=== PATIENT | male | born 1995 | race African-American/Black ===

== ENCOUNTER 2018-01-28 13:06 | Emergency (ER) | payer SELFPAY ==
[~2018-01-28] VITALS: Ht 175.3 cm; Wt 87.5 kg
[2018-01-28 13:18] VITALS: BP 132/68; PULSE 78; RESP 16; TEMP 98.3; O2SAT 100
[2018-01-28] MEDS ORDERED: SODIUM CHLOR 0.9% 1000 ML INJ 1,000 ML IV ONE (13:43)
[2018-01-28] MEDS ORDERED: diphenhydrAMINE HCL 50 MG/ML VIAL IVP ONE (13:45)
[2018-01-28] MEDS ORDERED: PROCHLORPERAZINE INJ 10 MG/2 ML VIAL IVP ONE (13:45)
[2018-01-28] MEDS ORDERED: SODIUM CHLORIDE 0.9% FLUSH 10 ML FLUSH IVF PRN (13:45)
--- NOTE | 2018-01-28 13:50 | PD ---
HPI Chief Complaint: Dizziness Time Seen by Provider: 13:43 Travel History International Travel<30 days: No Contact w/Intl Traveler<30days: No Traveled to known affect area: No History of Present Illness HPI 22-year-old male presents with lightheadedness, vomiting and headache since last night. He denies any diarrhea, cough, fever or other concurrent complaints. He denies any trauma. He denies recurrent history of this. He states he tried Motrin without relief. Duration is one day. He denies specific modifying factors. Quality is pressure. Severity is moderate. PFSH Past Medical History Medical History: Denies Significant Hx Past Surgical History Surgical History: No Previous Surgery Social History Tobacco Use: No Allergies-Medications (Allergen,Severity, Reaction): Coded Allergies: No Known Allergies (Unverified , 05/04/13) Reported Meds & Prescriptions Reported Meds & Active Scripts Active Zofran Odt (Ondansetron Odt) 4 Mg Tab 4 Mg SL Q8HR PRN Review of Systems Except as stated in HPI: all other systems reviewed are Neg Physical Exam Narrative GENERAL: 22-year-old male in no apparent distress SKIN: Focused skin assessment warm/dry. HEAD: Atraumatic. Normocephalic. EYES: Pupils equal and round. No scleral icterus. No injection or drainage. ENT: No nasal bleeding or discharge. Mucous membranes pink and moist. NECK: Trachea midline. No JVD. No meningeal signs CARDIOVASCULAR: Regular rate and rhythm. No murmur appreciated. RESPIRATORY: No accessory muscle use. Clear to auscultation. Breath sounds equal bilaterally. GASTROINTESTINAL: Abdomen soft, non-tender, nondistended. MUSCULOSKELETAL: No obvious deformities. No clubbing. No cyanosis. NEUROLOGICAL: Awake and alert. No obvious cranial nerve deficits. Motor grossly within normal limits. Normal speech. 5 out of 5 in all 4 extremities, equal grasp bilaterally PSYCHIATRIC: Appropriate mood and affect; insight and judgment normal. Data Data Last Documented VS Vital Signs Date Time Temp Pulse Resp B/P (MAP) Pulse Ox O2 Delivery O2 Flow Rate FiO2 01/28/18 14:30 98 Room Air 01/28/18 13:46 18 01/28/18 13:18 98.3 78 132/68 (89) Orders Orders Complete Blood Count With Diff (01/28/18 13:43) Basic Metabolic Panel (Bmp) (01/28/18 13:43) Ct Brain W/O Iv Contrast(Rout) (01/28/18 13:43) Ecg Monitoring (01/28/18 13:43) Iv Access Insert/Monitor (01/28/18 13:43) Oximetry (01/28/18 13:43) Sodium Chloride 0.9% Flush (Ns Flush) (01/28/18 13:45) Prochlorperazine Inj (Compazine Inj) (01/28/18 13:45) Diphenhydramine Inj (Benadryl Inj) (01/28/18 13:45) Sodium Chlor 0.9% 1000 Ml Inj (Ns 1000 M (01/28/18 13:43) Ed Discharge Order (01/28/18 16:30) Labs Laboratory Tests Test 01/28/18 14:30 White Blood Count 5.6 TH/MM3 Red Blood Count 5.97 MIL/MM3 Hemoglobin 15.2 GM/DL Hematocrit 46.4 % Mean Corpuscular Volume 77.8 FL Mean Corpuscular Hemoglobin 25.5 PG Mean Corpuscular Hemoglobin Concent 32.7 % Red Cell Distribution Width 13.3 % Platelet Count 276 TH/MM3 Mean Platelet Volume 9.0 FL Neutrophils (%) (Auto) 78.6 % Lymphocytes (%) (Auto) 14.3 % Monocytes (%) (Auto) 6.6 % Eosinophils (%) (Auto) 0.0 % Basophils (%) (Auto) 0.5 % Neutrophils # (Auto) 4.4 TH/MM3 Lymphocytes # (Auto) 0.8 TH/MM3 Monocytes # (Auto) 0.4 TH/MM3 Eosinophils # (Auto) 0.0 TH/MM3 Basophils # (Auto) 0.0 TH/MM3 CBC Comment DIFF FINAL Differential Comment Blood Urea Nitrogen 13 MG/DL Creatinine 1.27 MG/DL Random Glucose 84 MG/DL Calcium Level 10.0 MG/DL Sodium Level 138 MEQ/L Potassium Level 4.7 MEQ/L Chloride Level 104 MEQ/L Carbon Dioxide Level 24.9 MEQ/L Anion Gap 9 MEQ/L Estimat Glomerular Filtration Rate 84 ML/MIN [facility] Medical Decision Making Medical Screen Exam Complete: Yes Emergency Medical Condition: Yes Medical Record Reviewed: Yes (Past history confirmed) Interpretation(s) CBC & BMP Diagram 01/28/18 14:30 Calcium Level 10.0 Last [address] 01/28/18 1343 Signed Impressions: Service Date/Time: Sunday, January 28, 2018 14:25 - CONCLUSION: Normal examination. Ermias Hood MD Differential Diagnosis Tension, migraine, intracranial Narrative Course Will check blood work, CT brain and dose with medication and reevaluate ED workup no acute, Patient denies any new complaints and states that they are feeling better. Patient happy with care, all questions answered. Patient knows that follow up is incumbent on them and to return to the emergency room immediately if new or worsening symptoms develop. Patient given strict return precautions, vitals reviewed and are normal, agrees to further workup as an outpatient. Diagnosis Primary Impression: Cephalgia Qualified Codes: R51 - Headache Additional Impression: Vomiting Qualified Codes: R11.2 - Nausea with vomiting, unspecified Patient Instructions: General Instructions Additional Instructions: alternate tylenol and motrin, return as needed, follow with primary wednesday Med/Other Pt SpecificInfo: Prescription(s) given Scripts Ondansetron Odt (Zofran Odt) 4 Mg Tab 4 MG SL Q8HR Y for Nausea/Vomiting, #10 TAB 0 Refills Prov: Heather Mccray MD 01/28/18 Disposition: 01 DISCHARGE HOME Condition: Stable Heather Mccray MD Jan 28, 2018 13:50
[2018-01-28 14:30] VITALS: O2SAT 98
--- NOTE | 2018-01-28 14:37 | RADRPT ---
EXAM DATE/TIME: 01/28/2018 14:25 [facility] COMPARISON: No previous studies available for comparison. INDICATIONS : Cephalgia, dizziness. RADIATION DOSE: 38.57 CTDIvol (mGy) MEDICAL HISTORY : None SURGICAL HISTORY : None. ENCOUNTER: Initial ACUITY: 1 day PAIN SCALE: 6/10 LOCATION: cranial TECHNIQUE: Multiple contiguous axial images were obtained of the head. Using automated exposure control and adj ustment of the mA and/or kV according to patient size, radiation dose was kept as low as reasonably a chievable to obtain optimal diagnostic quality images. DICOM format image data is available electro nically for review and comparison. FINDINGS: CEREBRUM: The ventricles are normal for age. No evidence of midline shift, mass lesion, hemorrhage or acute in farction. No extra-axial fluid collections are seen. POSTERIOR FOSSA: The cerebellum and brainstem are intact. The 4th ventricle is midline. The cerebellopontine angle i s unremarkable. EXTRACRANIAL: The visualized portion of the orbits is intact. SKULL: The calvaria is intact. No evidence of skull fracture. CONCLUSION: Normal examination. Ermias Hood MD on January 28, 2018 at 14:34 Board Certified Radiologist. This report was verified electronically.
[2018-01-28 15:23] LABS: AUTOMATED NEUTROPHIL # 4.4 TH/MM3 (1.8-7.7); BASOPHIL % 0.5 % (0.0-2.0); HEMATOCRIT 46.4 % (39.0-51.0); HEMOGLOBIN 15.2 GM/DL (13.0-17.0); LYMPH % 14.3 % (9.0-44.0); LYMPHOCYTE # 0.8 TH/MM3 (1.0-4.8); MEAN CELL VOLUME 77.8 FL (80.0-100.0); MEAN CORPUSCULAR HEMOGLOBIN 25.5 PG (27.0-34.0); MEAN CORPUSCULAR HGB CONC 32.7 % (32.0-36.0); MONO % 6.6 % (0.0-8.0); MONOCYTE # 0.4 TH/MM3 (0-0.9); NEUT % 78.6 % (16.0-70.0); PLATELET COUNT 276 TH/MM3 (150-450); RED BLOOD COUNT 5.97 MIL/MM3 (4.50-5.90); RED CELL DISTRIBUTION WIDTH 13.3 % (11.6-17.2); WHITE BLOOD COUNT 5.6 TH/MM3 (4.0-11.0)
[2018-01-28 15:42] LABS: BICARBONATE 24.9 MEQ/L (21.0-32.0); CREATININE 1.27 MG/DL (0.60-1.30)
[2018-01-28] MEDS ORDERED: ZOFR4TAB3 SL (16:32)
[2018-01-28 16:51] VITALS: BP 117/56
== END 2018-01-28 16:52 | disposition home or self-care (01) ==
LOC: NEPE 13:06
DX: R51 Headache (principal); R11.2 Nausea with vomiting, unspecified
CPT/HCPCS: 70450; 80048; 85025; 96361; 96374; 96375; 99284; J0780; J1200; J7030